=== PATIENT | male | born 1965 | race African-American/Black ===

== ENCOUNTER 2019-12-03 15:51 | Emergency (ER) | payer OTHER ==
[~2019-12-03] VITALS: Ht 162.6 cm; Wt 93.0 kg
[2019-12-03] MEDS ORDERED: LISINOPRIL2.5 MG PO (16:02)
[2019-12-03] MEDS ORDERED: ASA81BEC PO (16:02)
[2019-12-03] MEDS ORDERED: NORCO 5-325 TA1 EAC2 PO (16:30)
[2019-12-03] MEDS ORDERED: FLEXERIL PO (16:30)
[2019-12-03 17:21] VITALS: BP 189/99
== END 2019-12-03 17:22 | disposition home or self-care (01) ==
LOC: M.ERS 15:51
DX: S13.4XXA Sprain of ligaments of cervical spine, initial encounter (principal); I10 Essential (primary) hypertension; E78.00 Pure hypercholesterolemia, unspecified; V89.2XXA Person injured in unspecified motor-vehicle accident, traffic, initial encounter; Y93.89 Activity, other specified; Y92.89 Other specified places as the place of occurrence of the external cause; Y99.8 Other external cause status